=== PATIENT | female | born 2000 | race Two or more races ===

== ENCOUNTER → 2023-09-21 01:04 | Emergency (ER) | payer SELFPAY ==
[~2023-09-21] VITALS: Ht 160 cm; Wt 100.0 kg
[2023-09-21 01:44] VITALS: BP 109/77; PULSE 139; RESP 20; O2SAT 97
== END | disposition left against medical advice (07) ==
LOC: ER 01:04
DX: U07.1 COVID-19 (principal); Z53.21 Procedure and treatment not carried out due to patient leaving prior to being seen by health care provider